=== PATIENT | male | born 1990 | race African-American/Black ===

== ENCOUNTER 2021-04-01 05:49 | Emergency (ER) | payer BC, OTHER ==
[~2021-04-01] VITALS: Ht 170.2 cm; Wt 77.1 kg
[2021-04-01] MEDS ORDERED: IV NORMAL SALINE 1000 ML BAG IV ONE (06:15)
[2021-04-01] MEDS ORDERED: ONDANSETRON 4 MG/2 ML VIAL IV ONE (06:15)
[2021-04-01] MEDS ORDERED: ONDANSETRON 4 MG/2 ML VIAL ONE (06:24)
[2021-04-01 06:28] LABS: HEMATOCRIT 39.3 % (36.7-47.1); MEAN CORPUSCULAR VOLUME 88.6 fL (73.0-96.2); PLATELET COUNT (AUTO) 349 K/uL (152-348)
[2021-04-01 06:33] LABS: CREATININE 1.1 mg/dL (0.6-1.3)
[2021-04-01 06:49] LABS: BILIRUBIN,DIRECT 0.1 mg/dL (0.0-0.2); BILIRUBIN,TOTAL 0.5 mg/dL (0.2-1.0)
--- NOTE | 2021-04-01 07:30 | NUR ---
Recieved patient in shift report from Danny BARAKAT Patient verbalizing he would like to go home, no signs of acute distress noted
--- NOTE | 2021-04-01 08:34 | NUR ---
Patient discharged to home in stable condition. Patient noted walking with steady gait to private car driven by . Written and verbal after care instructions given. Took all belongings. Patient verbalizes understanding of instructions. Stressed follow up or return to ER for worsening s/s.
[2021-04-01 08:39] VITALS: BP 124/76
== END 2021-04-01 08:28 | disposition home or self-care (01) ==
LOC: ER 06:00
DX: R11.2 Nausea with vomiting, unspecified (principal); K22.6 Gastro-esophageal laceration-hemorrhage syndrome; R07.9 Chest pain, unspecified; R00.1 Bradycardia, unspecified; Z88.0 Allergy status to penicillin
CPT/HCPCS: 36415; 71045; 80048; 80076; 83690; 83880; 84484 ×2; 85025; 85730; 93005 ×2; 96361; 96374; 99285; J2405; 70030-TC; A4663; J7030

== ENCOUNTER 2023-03-10 08:18 | Emergency (ER) | payer BC ==
[~2023-03-10] VITALS: Ht 172.7 cm; Wt 90.7 kg
[2023-03-10] MEDS ORDERED: DEXAMETHASONE SOD PHOSPHATE 4 MG INJ ONE (09:13)
[2023-03-10] MEDS ORDERED: KETOROLAC TROMETHAMINE 15 MG INJ ONE (09:13)
[2023-03-10] MEDS ORDERED: DEXAMETHASONE SOD PHOSPHATE 4 MG INJ IM ONE ×2 (09:15→09:30)
[2023-03-10] MEDS ORDERED: KETOROLAC TROMETHAMINE 15 MG INJ IM ONE (09:15)
[2023-03-10] MEDS ORDERED: IBUP-1955 PO (09:59)
[2023-03-10] MEDS ORDERED: CLIN300C12 PO (09:59)
[2023-03-10 10:05] VITALS: BP 133/77; O2SAT 97
== END 2023-03-10 10:06 | disposition home or self-care (01) ==
LOC: ER 08:18
DX: J02.9 Acute pharyngitis, unspecified (principal); R51.9 Headache, unspecified; K21.9 Gastro-esophageal reflux disease without esophagitis; Z88.0 Allergy status to penicillin
CPT/HCPCS: 86403; A4663; J1100; J1885